=== PATIENT | male | born 1940 | race Caucasian/White ===

== ENCOUNTER 2018-10-26 09:20 | Inpatient (IN) ==
[2018-10-26] MEDS ORDERED: ASPIRIN 325 MG TABLET PO STA (09:44)
[2018-10-26] MEDS ORDERED: NITROGLYCERIN 2% OINT 1 INCH/GM PACK TOP STA (09:44)
[2018-10-26] MEDS ORDERED: ALBUTEROL/IPRATROPIUM 3 ML NEB RESP TX STA ×2 (09:44→11:53)
[2018-10-26] MEDS ORDERED: ONDANSETRON 4 MG/2 ML VIAL IV STA (09:44)
[2018-10-26] MEDS ORDERED: KETOROLAC 30 MG/1 ML VIAL IV STA (09:44)
[2018-10-26 10:06] LABS: Basophils # 0.1 10*3/uL (0.0-0.2); Basophils % 1.1 % (0.0-0.8); Eosinophils # 0.2 10*3/uL (0.0-0.87); Eosinophils % 2.5 % (0.00-10.9); Hematocrit 49.9 VOL% (42.0-52.0); Immature Granulocytes % 0.4 %; Immature Granulocytes Absolute 0.03 #; Lymphocytes # 1.2 10*3/uL (1.4-4.0); Lymphocytes % 13.5 % (21.2-54.2); Mean Corpuscular HGB Conc 32.1 GM/DL (32-36); Mean Corpuscular Volume 94.7 FL (87-102); Mean Platelet Volume 9.8 FL (9.6-12.0); Monocytes % 8.2 % (1.7-12.7); Neutrophils % 74.3 % (38.7-73.9); Platelet Count 189 T/CUMM (130-400); Red Blood Count 5.27 MC/CUMM (3.8-5.5); Red Cell Distribution Width 12.9 % (9.3-17.3); White Blood Count 8.5 T/CUMM (4-12)
[2018-10-26 10:17] LABS: PT Patient Result 10.6 SECS; Partial Thromboplastin Time 24.3 SECS (0-40)
[2018-10-26 10:29] LABS: Alanine Aminotransferase 16 U/L (16-61); Albumin 3.6 G/DL (3.4-5.0); Alkaline Phosphatase 107 U/L (45-117); Aspartate Amino Transferase 18 U/L (0-37); Blood Urea Nitrogen 19 MG/DL (7-18); Calcium 9.4 MG/DL (8.5-10.1); Glucose 77 MG/DL (74-106); Osmolality,Calculated 279.4 MOS/KG (273-304); Total Protein 7.6 G/DL (6.4-8.3)
[2018-10-26 10:30] LABS: Troponin I 0.138 NG/ML (0.00-0.045)
[2018-10-26 11:17] LABS: Apearance,Urine CLEAR (Clear); Bilirubin,Urine Negative (Negative); Blood, Urine Negative (Negative); Glucose,Urine (UA) Negative (Negative); Ketones,Urine Negative (Negative); Mucus,Urine Occasional /LPF (Occasional); Nitrite,Urine Negative (Negative); Protein,Urine Negative; RBC,Urine 4 /HPF (0-4); Squamous Epithelial Cell,Urine Occasional /HPF (0-10); Urine Color Yellow (Yellow); Urine Specific Gravity 1.018 (1.001-1.035); WBC,Urine <1 /HPF (0-6)
[2018-10-26 14:34] LABS: Troponin I 0.159 NG/ML (0.00-0.045)
[2018-10-26] MEDS ORDERED: ONDANSETRON 4 MG/2 ML VIAL IV PRN (16:37)
[2018-10-26] MEDS ORDERED: diphenhydrAMINE CAP 25 MG CAPSULE PO PRN (16:37)
[2018-10-26] MEDS ORDERED: NICOTINE 21 MG/24 HR PATCH TRANSDERM PRN (16:37)
[2018-10-26] MEDS ORDERED: DOCUSATE SODIUM 100 MG CAPSULE PO PRN (16:37)
[2018-10-26] MEDS ORDERED: MAGNESIUM SULF RIDER 4 GM in PREMIX 1 EACH IV PRN (16:37)
[2018-10-26] MEDS ORDERED: ZALEPLON 5 MG CAPSULE PO PRN (16:37)
[2018-10-26] MEDS ORDERED: MAGNESIUM SULF RIDER 2 GM in PREMIX 1 EACH IV PRN (16:37)
[2018-10-26] MEDS ORDERED: PROMETHAZINE 25 MG TABLET PO PRN (16:37)
[2018-10-26] MEDS ORDERED: MORPHINE 4 MG/1 ML VIAL IV PRN (16:37)
[2018-10-26] MEDS ORDERED: ACETAMINOPHEN 325 MG TABLET PO PRN (16:37)
[2018-10-26] MEDS ORDERED: guaiFENesin/DM ER 600-30 MG TABLET PO PRN (16:37)
[2018-10-26] MEDS ORDERED: FAMOTIDINE 20 MG TABLET PO PRN (16:42)
[2018-10-26] MEDS ORDERED: SODIUM CHLORIDE 0.9% 1,000 ML IV SCH (17:00)
[2018-10-26] MEDS ORDERED: NITROGLYCERIN SL 0.4 MG TABLET SL PRN (17:26)
[2018-10-26 18:10] LABS: Risk Ratio 4.61; VLDL CHOLESTEROL 19.6 MG/DL
[2018-10-26] MEDS ORDERED: ASPIRIN EC 81 MG TABLET PO SCH (21:00)
[2018-10-26] MEDS ORDERED: LISINOPRIL 20 MG TABLET PO SCH (21:00)
[2018-10-26] MEDS: ROSUVASTATIN 10 MG TABLET PO SCH (21:39)
[2018-10-26] MEDS: METOPROLOL TARTRATE 25 MG TABLET PO SCH (21:39)
[2018-10-26] MEDS: ENOXAPARIN 80 MG/0.8 ML SYRINGE SUBCUT SCH (21:40)
[2018-10-26] MEDS: buPROPion 75 MG TABLET PO SCH (21:42)
[2018-10-26 23:40] LABS: Troponin I 0.215 NG/ML (0.00-0.045)
[2018-10-27 05:59] LABS: Basophils # 0.1 10*3/uL (0.0-0.2); Basophils % 1.3 % (0.0-0.8); Eosinophils # 0.3 10*3/uL (0.0-0.87); Eosinophils % 3.9 % (0.00-10.9); Hematocrit 41.5 VOL% (42.0-52.0); Hemoglobin 13.5 GM/DL (14.0-18.0); Immature Granulocytes % 0.4 %; Immature Granulocytes Absolute 0.03 #; Lymphocytes # 1.2 10*3/uL (1.4-4.0); Lymphocytes % 17.9 % (21.2-54.2); Mean Corpuscular HGB Conc 32.5 GM/DL (32-36); Mean Corpuscular Volume 94.7 FL (87-102); Mean Platelet Volume 10.3 FL (9.6-12.0); Monocytes % 8.6 % (1.7-12.7); Neutrophils % 67.9 % (38.7-73.9); Platelet Count 167 T/CUMM (130-400); Red Blood Count 4.38 MC/CUMM (3.8-5.5); Red Cell Distribution Width 12.9 % (9.3-17.3); White Blood Count 6.9 T/CUMM (4-12)
[2018-10-27 06:25] LABS: Albumin 3.2 G/DL (3.4-5.0); Bilirubin,Total 0.9 MG/DL (0.2-1.0); Calcium 8.6 MG/DL (8.5-10.1); Osmolality,Calculated 289.8 MOS/KG (273-304); Total Protein 6.3 G/DL (6.4-8.3)
[2018-10-27] MEDS: ENOXAPARIN 80 MG/0.8 ML SYRINGE SUBCUT SCH ×2 (06:47→17:53)
[2018-10-27] MEDS: buPROPion 75 MG TABLET PO SCH (08:50)
[2018-10-27] MEDS: METOPROLOL TARTRATE 25 MG TABLET PO SCH ×2 (08:50→22:36)
[2018-10-27] MEDS: PANTOPRAZOLE 40 MG TABLET PO SCH (08:50)
[2018-10-27] MEDS ORDERED: ASPIRIN CHEW 81 MG TABLET PO ONE (15:31)
[2018-10-27] MEDS: LACTULOSE 20 GM/30 ML UDCUP PO PRN (15:58)
[2018-10-27] MEDS: ALBUTEROL/IPRATROPIUM 3 ML NEB RESP TX SCH ×2 (21:08→23:55)
[2018-10-27] MEDS: ROSUVASTATIN 10 MG TABLET PO SCH (22:36)
[2018-10-28] MEDS: ENOXAPARIN 80 MG/0.8 ML SYRINGE SUBCUT SCH ×2 (06:17→17:47)
[2018-10-28] MEDS: ALBUTEROL/IPRATROPIUM 3 ML NEB RESP TX SCH ×5 (07:41→23:07)
[2018-10-28] MEDS: buPROPion 75 MG TABLET PO SCH (09:02)
[2018-10-28] MEDS: PANTOPRAZOLE 40 MG TABLET PO SCH (09:02)
[2018-10-28] MEDS: ASPIRIN CHEW 81 MG TABLET PO SCH (09:02)
[2018-10-28] MEDS: METOPROLOL TARTRATE 25 MG TABLET PO SCH ×2 (09:03→21:22)
[2018-10-28] MEDS ORDERED: POTASSIUM CHLORIDE RIDER 10 MEQ in PREMIX 1 EACH IV PRN (15:07)
[2018-10-28] MEDS ORDERED: MAGNESIUM SULF RIDER 2 GM in PREMIX 1 EACH IV PRN (15:07)
[2018-10-28] MEDS ORDERED: DIAZEPAM 5 MG TABLET PO ONE (15:07)
[2018-10-28] MEDS ORDERED: diphenhydrAMINE CAP 25 MG CAPSULE PO ONE (15:07)
[2018-10-28] MEDS: ROSUVASTATIN 10 MG TABLET PO SCH (21:21)
[2018-10-28] MEDS: NITROGLYCERIN 2% OINT 1 INCH/GM PACK TOP SCH (21:43)
[2018-10-28] MEDS: SODIUM CHLORIDE 0.9% 1,000 ML IV SCH (22:14)
[2018-10-29 04:18] LABS: Basophils # 0.1 10*3/uL (0.0-0.2); Basophils % 1.5 % (0.0-0.8); Eosinophils # 0.3 10*3/uL (0.0-0.87); Eosinophils % 5.5 % (0.00-10.9); Hematocrit 39.2 VOL% (42.0-52.0); Immature Granulocytes % 0.2 %; Immature Granulocytes Absolute 0.01 #; Lymphocytes # 1.3 10*3/uL (1.4-4.0); Lymphocytes % 22.7 % (21.2-54.2); Mean Corpuscular HGB Conc 33.2 GM/DL (32-36); Mean Corpuscular Volume 92.5 FL (87-102); Mean Platelet Volume 10.1 FL (9.6-12.0); Monocytes % 10.4 % (1.7-12.7); Neutrophils % 59.7 % (38.7-73.9); Platelet Count 180 T/CUMM (130-400); Red Blood Count 4.24 MC/CUMM (3.8-5.5); Red Cell Distribution Width 12.9 % (9.3-17.3); White Blood Count 5.5 T/CUMM (4-12)
[2018-10-29] MEDS: NITROGLYCERIN 2% OINT 1 INCH/GM PACK TOP SCH ×4 (05:56→20:57)
[2018-10-29] MEDS: ENOXAPARIN 80 MG/0.8 ML SYRINGE SUBCUT SCH (06:01)
[2018-10-29] MEDS: ALBUTEROL/IPRATROPIUM 3 ML NEB RESP TX SCH ×5 (07:00→23:01)
[2018-10-29] MEDS: SODIUM CHLORIDE 0.9% 1,000 ML IV SCH ×2 (07:20→08:42)
[2018-10-29 07:25] LABS: Calcium 8.2 MG/DL (8.5-10.1); Osmolality,Calculated 286.8 MOS/KG (273-304)
[2018-10-29] MEDS ORDERED: diphenhydrAMINE CAP 50 MG CAPSULE ONE (10:06)
[2018-10-29] MEDS ORDERED: DIAZEPAM 5 MG TABLET ONE (10:06)
[2018-10-29] MEDS: METOPROLOL TARTRATE 25 MG TABLET PO SCH ×3 (11:15→20:54)
[2018-10-29] MEDS: ASPIRIN CHEW 81 MG TABLET PO SCH ×2 (11:15→11:16)
[2018-10-29] MEDS: buPROPion 75 MG TABLET PO SCH (11:16)
[2018-10-29] MEDS: PANTOPRAZOLE 40 MG TABLET PO SCH (11:16)
[2018-10-29] MEDS ORDERED: LIDOCAINE 1% 20 ML VIAL ONE (13:27)
[2018-10-29] MEDS ORDERED: MIDAZOLAM 2 MG/2 ML VIAL ONE (13:40)
[2018-10-29] MEDS ORDERED: fentaNYL 100 MCG/2 ML VIAL ONE (14:12)
[2018-10-29] MEDS: ROSUVASTATIN 10 MG TABLET PO SCH (20:54)
[2018-10-29] MEDS: ENOXAPARIN 30 MG/0.3 ML SYRINGE SUBCUT SCH (20:56)
[2018-10-30] MEDS: NITROGLYCERIN 2% OINT 1 INCH/GM PACK TOP SCH ×4 (03:16→22:17)
[2018-10-30 04:24] LABS: Basophils # 0.1 10*3/uL (0.0-0.2); Basophils % 1.2 % (0.0-0.8); Eosinophils # 0.3 10*3/uL (0.0-0.87); Eosinophils % 4.6 % (0.00-10.9); Hematocrit 39.7 VOL% (42.0-52.0); Hemoglobin 13.2 GM/DL (14.0-18.0); Immature Granulocytes % 0.4 %; Immature Granulocytes Absolute 0.02 #; Lymphocytes # 0.8 10*3/uL (1.4-4.0); Lymphocytes % 13.8 % (21.2-54.2); Mean Corpuscular HGB Conc 33.2 GM/DL (32-36); Mean Corpuscular Volume 93.4 FL (87-102); Mean Platelet Volume 10.2 FL (9.6-12.0); Monocytes % 8.6 % (1.7-12.7); Neutrophils % 71.4 % (38.7-73.9); Platelet Count 200 T/CUMM (130-400); Red Blood Count 4.25 MC/CUMM (3.8-5.5); Red Cell Distribution Width 13.1 % (9.3-17.3); White Blood Count 5.7 T/CUMM (4-12)
[2018-10-30 04:45] LABS: Calcium 8.4 MG/DL (8.5-10.1); Osmolality,Calculated 287.8 MOS/KG (273-304)
[2018-10-30] MEDS: ALBUTEROL/IPRATROPIUM 3 ML NEB RESP TX SCH ×4 (07:20→19:31)
[2018-10-30] MEDS: PANTOPRAZOLE 40 MG TABLET PO SCH (09:10)
[2018-10-30] MEDS: METOPROLOL TARTRATE 25 MG TABLET PO SCH ×2 (09:10→22:17)
[2018-10-30] MEDS: ASPIRIN CHEW 81 MG TABLET PO SCH (09:10)
[2018-10-30] MEDS: buPROPion 75 MG TABLET PO SCH (09:10)
[2018-10-30] MEDS: POTASSIUM CHLORIDE 20 MEQ TABLET PO PRN ×2 (09:11→10:30)
[2018-10-30] MEDS: ENOXAPARIN 30 MG/0.3 ML SYRINGE SUBCUT SCH ×2 (09:11→22:17)
[2018-10-30] MEDS: LACTULOSE 20 GM/30 ML UDCUP PO PRN ×2 (13:54→18:07)
[2018-10-30] MEDS: amLODIPine 5 MG TABLET PO SCH (18:06)
[2018-10-30] MEDS: ROSUVASTATIN 10 MG TABLET PO SCH (22:17)
[2018-10-31] MEDS: ALBUTEROL/IPRATROPIUM 3 ML NEB RESP TX SCH ×6 (01:22→23:50)
[2018-10-31 05:15] LABS: Basophils # 0.1 10*3/uL (0.0-0.2); Basophils % 1.3 % (0.0-0.8); Eosinophils # 0.4 10*3/uL (0.0-0.87); Eosinophils % 6.8 % (0.00-10.9); Hematocrit 43.2 VOL% (42.0-52.0); Hemoglobin 14.2 GM/DL (14.0-18.0); Immature Granulocytes % 1.2 %; Immature Granulocytes Absolute 0.07 #; Lymphocytes # 1.2 10*3/uL (1.4-4.0); Lymphocytes % 19.2 % (21.2-54.2); Mean Corpuscular HGB Conc 32.9 GM/DL (32-36); Mean Corpuscular Volume 93.7 FL (87-102); Mean Platelet Volume 9.9 FL (9.6-12.0); Monocytes % 10.6 % (1.7-12.7); Neutrophils % 60.9 % (38.7-73.9); Platelet Count 220 T/CUMM (130-400); Red Blood Count 4.61 MC/CUMM (3.8-5.5); Red Cell Distribution Width 13.1 % (9.3-17.3)
[2018-10-31 05:41] LABS: Calcium 9.1 MG/DL (8.5-10.1); Osmolality,Calculated 281.3 MOS/KG (273-304)
[2018-10-31 05:42] LABS: Calcium 9.1 MG/DL (8.5-10.1); Osmolality,Calculated 279.4 MOS/KG (273-304)
[2018-10-31] MEDS ORDERED: CEFUROXIME INJ 1,500 MG in SYRINGE 1 EACH IV ONE (06:22)
[2018-10-31] MEDS ORDERED: DEXTROSE 50% 25 GM/50 ML VIAL IV PRN (06:22)
[2018-10-31] MEDS ORDERED: GLUCAGON 1 MG VIAL IM PRN (06:22)
[2018-10-31 06:37] LABS: Allen Test Positive
[2018-10-31 06:38] LABS: ABG Base Excess -1.9 MMOL/L (-2.5-2.5); ABG HCO3 22.8 MMOL/L (20-26); ABG Oxygen Saturation 96.4 % (95-100); ABG PCO2 35.7 MM HG (35-48); ABG PH 7.402 (7.35-7.45); ABG PO2 82.7 MM HG (80-95); ABG TCO2 18.8 MMOL/L (23-27)
[2018-10-31] MEDS: ASPIRIN CHEW 81 MG TABLET PO SCH (09:05)
[2018-10-31] MEDS: METOPROLOL TARTRATE 25 MG TABLET PO SCH ×2 (09:05→23:13)
[2018-10-31] MEDS: CHLORHEXIDINE 0.12% ORAL RINSE 60 ML BOTTLE SWISH/SPIT SCH ×2 (09:05→22:21)
[2018-10-31] MEDS: PANTOPRAZOLE 40 MG TABLET PO SCH (09:05)
[2018-10-31] MEDS: amLODIPine 5 MG TABLET PO SCH (09:05)
[2018-10-31] MEDS: buPROPion 75 MG TABLET PO SCH (09:05)
[2018-10-31] MEDS: CHLORHEXIDINE 4% SOLN 118 ML BOTTLE TOP SCH ×3 (09:06→23:13)
[2018-10-31] MEDS: NITROGLYCERIN 2% OINT 1 INCH/GM PACK TOP SCH ×2 (09:06→18:08)
[2018-10-31] MEDS: POTASSIUM CHLORIDE 20 MEQ TABLET PO PRN ×2 (13:46→14:21)
[2018-10-31] MEDS: ROSUVASTATIN 10 MG TABLET PO SCH (22:18)
[2018-11-01] MEDS: NITROGLYCERIN 2% OINT 1 INCH/GM PACK TOP SCH ×3 (01:57→09:56)
[2018-11-01] MEDS ORDERED: PAPAVERINE 60 MG/2 ML VIAL ONE (04:22)
[2018-11-01] MEDS ORDERED: VANCOMYCIN 1,000 MG VIAL ONE (04:23)
[2018-11-01 04:31] LABS: Calcium 9.3 MG/DL (8.5-10.1); Osmolality,Calculated 284.1 MOS/KG (273-304)
[2018-11-01] MEDS: METOPROLOL TARTRATE 25 MG TABLET PO SCH ×2 (05:49→09:56)
[2018-11-01] MEDS: SODIUM CHLORIDE 0.9% 1,000 ML IV SCH ×2 (05:49→06:49)
[2018-11-01] MEDS: amLODIPine 5 MG TABLET PO SCH ×2 (05:50→09:56)
[2018-11-01] MEDS ORDERED: LORazepam 1 MG TABLET PO ONE (06:00)
[2018-11-01] MEDS ORDERED: CEFUROXIME INJ 1,500 MG in SYRINGE 1 EACH IV ONE (06:00)
[2018-11-01] MEDS ORDERED: SUFentanil 250 MCG/5 ML AMP ONE ×2 (06:15→06:16)
[2018-11-01] MEDS ORDERED: MIDAZOLAM 10 MG/2 ML VIAL ONE (06:16)
[2018-11-01 07:48] LABS: ABG HCO3 21.2 MMOL/L (20-26); ABG Oxygen Saturation 99.8 % (95-100); ABG PCO2 45.4 MM HG (35-48); ABG PH 7.305 (7.35-7.45); ABG TCO2 19.7 MMOL/L (23-27); Glucose Heart Surgery 116 MG/DL (74-106); Hematocrit Heart Surgery 43.5 PERCENT (42-52); Hemoglobin Heart Surgery 14.2 G/DL (14.0-18.0); Ionized Calcium Arterial 1.24 MMOL/L (1.21-1.46); PCO2 Patient Temp Arterial 45.4 MMHG; PH Patient Temp Arterial 7.305; Patient Temperature 37 CELCIUS; Potassium Heart/CVR 4.1 MMOL/L (3.5-5.1); Sodium Heart/CVR 139 MMOL/L (135-145)
[2018-11-01 07:53] LABS: Apearance,Urine CLEAR (Clear); Bilirubin,Urine Negative (Negative); Blood, Urine Negative (Negative); Glucose,Urine (UA) Negative (Negative); Ketones,Urine Negative (Negative); Mucus,Urine Occasional /LPF (Occasional); Nitrite,Urine Negative (Negative); Protein,Urine Negative; RBC,Urine <1 /HPF (0-4); Squamous Epithelial Cell,Urine Occasional /HPF (0-10); Urine Color Yellow (Yellow); Urine Specific Gravity 1.014 (1.001-1.035); WBC,Urine <1 /HPF (0-6)
[2018-11-01 08:47] LABS: Hematocrit Heart Surgery 30.6 PERCENT (42-52); Hemoglobin Heart Surgery 9.9 G/DL (14.0-18.0); PCO2 Patient Temp Venous 37.4 MM HG; PH Patient Temp Venous 7.395; PO2 Patient Temp Venous 47.3 MM HG; VBG Base Excess -1.6 MEQ/L (0-4); VBG HCO3 22.9 MEQ/L (24-28); VBG Oxygen Saturation 87.7 %; VBG PCO2 41.2 MMHG (41-51); VBG PH 7.366; VBG PO2 54.2 MMHG (17-40)
[2018-11-01] MEDS: ALBUTEROL/IPRATROPIUM 3 ML NEB RESP TX SCH ×5 (08:55→23:45)
[2018-11-01] MEDS ORDERED: HEPARIN/NACL 0.9% 2 UNITS/ML 500 ML IV ONE (09:07)
[2018-11-01] MEDS ORDERED: PHENYLEPHRINE DRIP 20 MG/250 ML PREMIX IV ONE (09:07)
[2018-11-01] MEDS ORDERED: ePHEDrine 50 MG/ML AMP ONE (09:07)
[2018-11-01] MEDS ORDERED: MINERAL OIL/PETROLATUM OPH OINT 3.5 GM TUBE ONE (09:07)
[2018-11-01] MEDS ORDERED: CALCIUM CHLORIDE 1,000 MG/10 ML VIAL IV ONE (09:07)
[2018-11-01] MEDS ORDERED: SODIUM CHLORIDE 0.9% 100 ML IV ONE (09:08)
[2018-11-01] MEDS ORDERED: NITROGLYCERIN DRIP 50 MG/250 ML BOTTLE IV ONE (09:08)
[2018-11-01] MEDS ORDERED: ROCURONIUM 100 MG/10 ML VIAL IV ONE (09:08)
[2018-11-01] MEDS ORDERED: AMINOCAPROIC ACID 5,000 MG/20 ML VIAL ONE (09:08)
[2018-11-01] MEDS ORDERED: LACTATED RINGERS 1,000 ML IV ONE (09:08)
[2018-11-01] MEDS ORDERED: SODIUM CHLORIDE 0.9% 250 ML IV ONE (09:08)
[2018-11-01] MEDS ORDERED: PHENYLEPHRINE 1 MG/10 ML SYRINGE IV ONE (09:08)
[2018-11-01] MEDS ORDERED: ETOMIDATE 40 MG/20 ML VIAL IV ONE (09:09)
[2018-11-01 09:17] LABS: Hematocrit Heart Surgery 32.4 PERCENT (42-52); Hemoglobin Heart Surgery 10.5 G/DL (14.0-18.0); PCO2 Patient Temp Venous 31.5 MM HG; PH Patient Temp Venous 7.505; Potassium Heart/CVR 5.2 MMOL/L (3.5-5.1); VBG Base Excess 2.2 MEQ/L (0-4); VBG HCO3 26.1 MEQ/L (24-28); VBG Oxygen Saturation 84.5 %; VBG PCO2 34.7 MMHG (41-51); VBG PH 7.474; VBG PO2 44.8 MMHG (17-40)
[2018-11-01] MEDS ORDERED: NITROPRUSSIDE 50 MG/2 ML VIAL ONE (09:19)
[2018-11-01] MEDS ORDERED: PHENYLEPHRINE DRIP 40 MG/250 ML PREMIX IV ONE (09:19)
[2018-11-01] MEDS ORDERED: POTASSIUM CHLORIDE RIDER 100 ML IV ONE (09:20)
[2018-11-01] MEDS ORDERED: ALBUMIN 5% 12.5 GM/250 ML VIAL IV ONE (09:20)
[2018-11-01] MEDS ORDERED: SODIUM BICARBONATE 50 MEQ/50 ML VIAL IV ONE (09:48)
[2018-11-01] MEDS ORDERED: MANNITOL 100 GM/500 ML BAG IV ONE (09:48)
[2018-11-01] MEDS ORDERED: DEXTROSE 5% KCL 20 MEQ 20 MEQ/1,000 ML BAG IV ONE (09:48)
[2018-11-01] MEDS ORDERED: ALBUMIN 25% 25 GM/100 ML VIAL IV ONE (09:48)
[2018-11-01] MEDS ORDERED: PROTAMINE SULFATE 250 MG/25 ML VIAL IV ONE (09:48)
[2018-11-01] MEDS ORDERED: MAGNESIUM SULFATE 5 GM/10 ML VIAL IV ONE (09:48)
[2018-11-01] MEDS ORDERED: FUROSEMIDE 20 MG/2 ML VIAL ONE (09:49)
[2018-11-01] MEDS ORDERED: methylPREDNISolone SOD SUC 1,000 MG/8 ML VIAL ONE (09:49)
[2018-11-01] MEDS ORDERED: PROTAMINE SULFATE 50 MG/5 ML VIAL IV ONE ×3 (09:49→11:15)
[2018-11-01] MEDS ORDERED: HEPARIN 10,000 UNIT/10 ML VIAL ONE (09:49)
[2018-11-01] MEDS: ASPIRIN CHEW 81 MG TABLET PO SCH (09:56)
[2018-11-01] MEDS: PANTOPRAZOLE 40 MG TABLET PO SCH (09:57)
[2018-11-01] MEDS: CHLORHEXIDINE 0.12% ORAL RINSE 60 ML BOTTLE SWISH/SPIT SCH ×2 (09:57→22:16)
[2018-11-01] MEDS: buPROPion 75 MG TABLET PO SCH (09:57)
[2018-11-01] MEDS ORDERED: THROMBIN TOPICAL (RECOMBINANT) 5,000 UNIT VIAL TOP ONE (09:59)
[2018-11-01 10:01] LABS: ABG Base Excess -0.6 MMOL/L (-2.5-2.5); ABG PCO2 37.6 MM HG (35-48); ABG PH 7.409 (7.35-7.45); ABG TCO2 21.2 MMOL/L (23-27); Glucose Heart Surgery 227 MG/DL (74-106); Hematocrit Heart Surgery 35.5 PERCENT (42-52); Hemoglobin Heart Surgery 11.5 G/DL (14.0-18.0); Ionized Calcium Arterial 1.47 MMOL/L (1.21-1.46); PCO2 Patient Temp Arterial 37.6 MMHG; PH Patient Temp Arterial 7.409; Patient Temperature 37 CELCIUS; Sodium Heart/CVR 135 MMOL/L (135-145)
[2018-11-01] MEDS ORDERED: DEXTROSE 50% 25 GM/50 ML VIAL IV PRN ×2 (11:00)
[2018-11-01] MEDS ORDERED: LACTATED RINGERS 250 ML IV PRN (11:00)
[2018-11-01] MEDS ORDERED: NITROPRUSSIDE 100 MG in DEXTROSE 5% 250 ML IV PRN (11:00)
[2018-11-01] MEDS ORDERED: MAGNESIUM SULF RIDER 2 GM in PREMIX 1 EACH IV PRN (11:00)
[2018-11-01] MEDS ORDERED: ACETAMINOPHEN 650 MG SUPP RECTAL PRN (11:00)
[2018-11-01] MEDS ORDERED: MIDAZOLAM 2 MG/2 ML VIAL IV PRN (11:00)
[2018-11-01] MEDS ORDERED: PHENYLEPHRINE DRIP 40 MG/250 ML PREMIX IV PRN (11:00)
[2018-11-01] MEDS ORDERED: MORPHINE 10 MG/1 ML VIAL IV PRN (11:00)
[2018-11-01] MEDS ORDERED: MIDAZOLAM 10 MG/2 ML VIAL IV PRN (11:00)
[2018-11-01] MEDS ORDERED: CALCIUM CHLORIDE 1,000 MG/10 ML SYRINGE IV PRN (11:00)
[2018-11-01] MEDS ORDERED: VECURONIUM 10 MG VIAL IV PRN ×2 (11:00)
[2018-11-01] MEDS ORDERED: ONDANSETRON 4 MG/2 ML VIAL IV PRN (11:00)
[2018-11-01] MEDS ORDERED: INSULIN REGULAR 100 UNIT/ML IV ONE (11:00)
[2018-11-01] MEDS ORDERED: MAGNESIUM SULF RIDER 4 GM in PREMIX 1 EACH IV PRN (11:00)
[2018-11-01] MEDS ORDERED: SEVOFLURANE 1 UNIT/15 MINUTE INH ONE (11:06)
[2018-11-01] MEDS: SODIUM CHLORIDE 0.45% 1,000 ML IV SCH ×2 (11:15)
[2018-11-01 11:45] LABS: ABG Base Excess -1.3 MMOL/L (-2.5-2.5); ABG HCO3 23.3 MMOL/L (20-26); ABG Oxygen Saturation 96.9 % (95-100); ABG PH 7.341 (7.35-7.45); ABG PO2 94.6 MM HG (80-95); ABG TCO2 21.8 MMOL/L (23-27); Glucose Heart Surgery 181 MG/DL (74-106); Hematocrit Heart Surgery 41.2 PERCENT (42-52); Hemoglobin Heart Surgery 13.4 G/DL (14.0-18.0); Potassium Heart/CVR 3.8 MMOL/L (3.5-5.1)
[2018-11-01] MEDS: LACTATED RINGERS 1,000 ML IV PRN ×3 (11:47→15:53)
[2018-11-01 11:48] LABS: Basophils # 0.1 10*3/uL (0.0-0.2); Basophils % 0.7 % (0.0-0.8); Eosinophils # 0.2 10*3/uL (0.0-0.87); Eosinophils % 1.3 % (0.00-10.9); Hemoglobin 12.8 GM/DL (14.0-18.0); Immature Granulocytes % 0.6 %; Immature Granulocytes Absolute 0.07 #; Lymphocytes % 8.3 % (21.2-54.2); Mean Corpuscular Volume 95.5 FL (87-102); Mean Platelet Volume 9.8 FL (9.6-12.0); Monocytes % 5.8 % (1.7-12.7); Neutrophils % 83.3 % (38.7-73.9); Platelet Count 206 T/CUMM (130-400); Red Blood Count 4.19 MC/CUMM (3.8-5.5); Red Cell Distribution Width 13.2 % (9.3-17.3)
[2018-11-01] MEDS: POTASSIUM CHLORIDE RIDER 20 MEQ in PREMIX 1 EACH IV PRN ×3 (11:48→19:22)
[2018-11-01 11:56] LABS: INR 1.2; PT Patient Result 13.2 SECS; Partial Thromboplastin Time 25.2 SECS (0-40)
[2018-11-01] MEDS: KETOROLAC 15 MG/1 ML VIAL IV SCH ×3 (12:02→22:16)
[2018-11-01] MEDS: INSULIN REGULAR DRIP 100 ML IV SCH (12:10)
[2018-11-01] MEDS: ALBUMIN 5% 12.5 GM in PREMIX 1 EACH IV PRN ×3 (12:11→14:44)
[2018-11-01] MEDS: POTASSIUM CHLORIDE RIDER 10 MEQ in PREMIX 1 EACH IV PRN ×2 (12:22→16:53)
[2018-11-01 12:41] LABS: CKMB % 6.8 %
[2018-11-01 12:43] LABS: Troponin I 2.17 NG/ML (0.00-0.045)
[2018-11-01 13:52] LABS: ABG Base Excess -0.9 MMOL/L (-2.5-2.5); ABG HCO3 23.6 MMOL/L (20-26); ABG Oxygen Saturation 95.1 % (95-100); ABG PCO2 49.5 MM HG (35-48); ABG PH 7.323 (7.35-7.45); ABG PO2 81.6 MM HG (80-95); Glucose Heart Surgery 110 MG/DL (74-106); Hematocrit Heart Surgery 37.2 PERCENT (42-52); Hemoglobin Heart Surgery 12.1 G/DL (14.0-18.0)
[2018-11-01 14:04] LABS: Albumin 3.3 G/DL (3.4-5.0); Bilirubin,Total 1.4 MG/DL (0.2-1.0); Calcium 10.2 MG/DL (8.5-10.1); Osmolality,Calculated 284.4 MOS/KG (273-304); Total Protein 5.8 G/DL (6.4-8.3)
[2018-11-01 16:12] LABS: ABG Base Excess -0.6 MMOL/L (-2.5-2.5); ABG Oxygen Saturation 95.8 % (95-100); ABG PCO2 39.8 MM HG (35-48); ABG PH 7.399 (7.35-7.45); ABG PO2 84.3 MM HG (80-95); ABG TCO2 25.3 MMOL/L (23-27); Glucose Heart Surgery 136 MG/DL (74-106); Hemoglobin Heart Surgery 11.9 G/DL (14.0-18.0); Potassium Heart/CVR 4.5 MMOL/L (3.5-5.1)
[2018-11-01] MEDS: CEFUROXIME INJ 1,500 MG in SYRINGE 1 EACH IV SCH (18:17)
[2018-11-01 19:08] LABS: ABG Base Excess -0.6 MMOL/L (-2.5-2.5); ABG HCO3 23.9 MMOL/L (20-26); ABG Oxygen Saturation 96.4 % (95-100); ABG PCO2 44.3 MM HG (35-48); ABG PO2 84.2 MM HG (80-95); ABG TCO2 22.5 MMOL/L (23-27); Glucose Heart Surgery 155 MG/DL (74-106); Hematocrit Heart Surgery 34.8 PERCENT (42-52); Hemoglobin Heart Surgery 11.3 G/DL (14.0-18.0); Potassium Heart/CVR 4.4 MMOL/L (3.5-5.1)
[2018-11-02] MEDS: INSULIN REGULAR 100 UNIT/ML IV PRN ×2 (00:10→06:45)
[2018-11-02 02:40] LABS: ABG Base Excess -0.2 MMOL/L (-2.5-2.5); ABG HCO3 24.2 MMOL/L (20-26); ABG Oxygen Saturation 95.6 % (95-100); ABG PCO2 40.1 MM HG (35-48); ABG PH 7.395 (7.35-7.45); ABG PO2 75.6 MM HG (80-95); ABG TCO2 21.9 MMOL/L (23-27); Glucose Heart Surgery 136 MG/DL (74-106); Hemoglobin Heart Surgery 11.7 G/DL (14.0-18.0); Potassium Heart/CVR 4.3 MMOL/L (3.5-5.1)
[2018-11-02 03:21] LABS: ABG Base Excess -0.4 MMOL/L (-2.5-2.5); ABG HCO3 24.1 MMOL/L (20-26); ABG Oxygen Saturation 96.6 % (95-100); ABG PCO2 40.7 MM HG (35-48); ABG PH 7.388 (7.35-7.45); ABG PO2 82.3 MM HG (80-95); ABG TCO2 22.1 MMOL/L (23-27); Glucose Heart Surgery 138 MG/DL (74-106); Hematocrit Heart Surgery 34.1 PERCENT (42-52); Hemoglobin Heart Surgery 11.1 G/DL (14.0-18.0); Potassium Heart/CVR 4.4 MMOL/L (3.5-5.1)
[2018-11-02 03:24] LABS: Basophils % 0.1 % (0.0-0.8); Immature Granulocytes % 0.6 %; Immature Granulocytes Absolute 0.08 #; Lymphocytes # 0.5 10*3/uL (1.4-4.0); Lymphocytes % 3.4 % (21.2-54.2); Mean Corpuscular HGB Conc 32.4 GM/DL (32-36); Mean Corpuscular Volume 95.8 FL (87-102); Mean Platelet Volume 10.3 FL (9.6-12.0); Monocytes % 2.8 % (1.7-12.7); Neutrophils % 93.1 % (38.7-73.9); Platelet Count 222 T/CUMM (130-400); Red Blood Count 3.55 MC/CUMM (3.8-5.5); Red Cell Distribution Width 13.1 % (9.3-17.3); White Blood Count 13.4 T/CUMM (4-12)
[2018-11-02] MEDS: POTASSIUM CHLORIDE RIDER 20 MEQ in PREMIX 1 EACH IV PRN (03:30)
[2018-11-02 03:52] LABS: Albumin 3.9 G/DL (3.4-5.0); Bilirubin,Direct 0.23 MG/DL (0.0-0.20); Bilirubin,Total 0.8 MG/DL (0.2-1.0); Calcium 9.2 MG/DL (8.5-10.1); Osmolality,Calculated 288.1 MOS/KG (273-304); Total Protein 6.4 G/DL (6.4-8.3)
[2018-11-02 03:55] LABS: CKMB % 5.4 %
[2018-11-02 03:56] LABS: Troponin I 2.35 NG/ML (0.00-0.045)
[2018-11-02 04:10] LABS: Eosinophils 1 % (0-10); Platelet Estimate Adequate; Polychromasia Few; Segmented Neutrophils 97 % (50-85); Total Cells Counted 100
[2018-11-02 04:21] LABS: ABG Base Excess -1.2 MMOL/L (-2.5-2.5); ABG HCO3 23.3 MMOL/L (20-26); ABG Oxygen Saturation 95.8 % (95-100); ABG PH 7.396 (7.35-7.45); ABG PO2 76.6 MM HG (80-95); ABG TCO2 20.9 MMOL/L (23-27); Glucose Heart Surgery 141 MG/DL (74-106); Hematocrit Heart Surgery 35.1 PERCENT (42-52); Hemoglobin Heart Surgery 11.4 G/DL (14.0-18.0); Potassium Heart/CVR 4.8 MMOL/L (3.5-5.1)
[2018-11-02 04:59] LABS: ABG Base Excess -1.7 MMOL/L (-2.5-2.5); ABG Oxygen Saturation 96.8 % (95-100); ABG PCO2 38.3 MM HG (35-48); ABG PH 7.387 (7.35-7.45); ABG PO2 84.8 MM HG (80-95); ABG TCO2 20.6 MMOL/L (23-27); Glucose Heart Surgery 146 MG/DL (74-106); Hematocrit Heart Surgery 35.2 PERCENT (42-52); Hemoglobin Heart Surgery 11.4 G/DL (14.0-18.0); Potassium Heart/CVR 4.7 MMOL/L (3.5-5.1)
[2018-11-02] MEDS ORDERED: ASPIRIN CHEW 81 MG TABLET PO ONE (06:11)
[2018-11-02] MEDS ORDERED: guaiFENesin/DM ER 600-30 MG TABLET PO PRN (06:11)
[2018-11-02] MEDS: KETOROLAC 15 MG/1 ML VIAL IV SCH (06:11)
[2018-11-02] MEDS: CEFUROXIME INJ 1,500 MG in SYRINGE 1 EACH IV SCH ×2 (06:11→19:01)
[2018-11-02 06:15] LABS: ABG Base Excess -1.3 MMOL/L (-2.5-2.5); ABG HCO3 23.2 MMOL/L (20-26); ABG Oxygen Saturation 94.2 % (95-100); ABG PCO2 37.2 MM HG (35-48); ABG PH 7.401 (7.35-7.45); ABG PO2 68.8 MM HG (80-95); ABG TCO2 20.7 MMOL/L (23-27); Glucose Heart Surgery 151 MG/DL (74-106); Hematocrit Heart Surgery 34.9 PERCENT (42-52); Hemoglobin Heart Surgery 11.3 G/DL (14.0-18.0); Potassium Heart/CVR 4.5 MMOL/L (3.5-5.1)
[2018-11-02] MEDS: POTASSIUM CHLORIDE RIDER 10 MEQ in PREMIX 1 EACH IV PRN (06:56)
[2018-11-02 07:11] LABS: ABG Base Excess -1.1 MMOL/L (-2.5-2.5); ABG HCO3 23.5 MMOL/L (20-26); ABG Oxygen Saturation 95.1 % (95-100); ABG PCO2 36.8 MM HG (35-48); ABG PH 7.407 (7.35-7.45); ABG PO2 71.7 MM HG (80-95); ABG TCO2 20.8 MMOL/L (23-27); Glucose Heart Surgery 140 MG/DL (74-106); Hematocrit Heart Surgery 34.5 PERCENT (42-52); Hemoglobin Heart Surgery 11.2 G/DL (14.0-18.0); Potassium Heart/CVR 4.8 MMOL/L (3.5-5.1)
[2018-11-02] MEDS: ALBUTEROL/IPRATROPIUM 3 ML NEB RESP TX SCH ×5 (07:36→23:00)
[2018-11-02] MEDS: PANTOPRAZOLE 40 MG TABLET PO SCH (09:36)
[2018-11-02] MEDS: buPROPion 75 MG TABLET PO SCH (09:37)
[2018-11-02] MEDS: METOPROLOL TARTRATE 25 MG TABLET PO SCH ×2 (09:37→20:03)
[2018-11-02] MEDS: CHLORHEXIDINE 0.12% ORAL RINSE 60 ML BOTTLE SWISH/SPIT SCH ×2 (09:51→20:06)
[2018-11-02 11:49] LABS: CKMB % 2.4 %
[2018-11-02 12:07] LABS: Troponin I 2.66 NG/ML (0.00-0.045)
[2018-11-02] MEDS: INSULIN REGULAR DRIP 100 ML IV SCH (12:25)
[2018-11-02] MEDS: SODIUM CHLORIDE 0.45% 1,000 ML IV SCH ×2 (12:25)
[2018-11-02] MEDS ORDERED: HALOPERIDOL 5 MG/ML AMP IM PRN ×2 (16:34→18:59)
[2018-11-02] MEDS: INSULIN REGULAR 100 UNIT/ML SUBCUT SCH ×3 (17:04→20:06)
[2018-11-02] MEDS: MORPHINE 4 MG/1 ML VIAL IV PRN (19:28)
[2018-11-02] MEDS ORDERED: FUROSEMIDE 40 MG/4 ML VIAL IV ONE ×2 (20:00)
[2018-11-02] MEDS: ROSUVASTATIN 10 MG TABLET PO SCH (20:03)
[2018-11-02] MEDS ORDERED: LISINOPRIL 10 MG TABLET PO SCH (21:00)
[2018-11-03] MEDS: INSULIN REGULAR 100 UNIT/ML SUBCUT SCH ×3 (00:43→08:13)
[2018-11-03 03:54] LABS: Basophils % 0.1 % (0.0-0.8); Hematocrit 31.5 VOL% (42.0-52.0); Immature Granulocytes % 0.7 %; Immature Granulocytes Absolute 0.12 #; Lymphocytes # 0.5 10*3/uL (1.4-4.0); Lymphocytes % 3.1 % (21.2-54.2); Mean Corpuscular HGB Conc 31.7 GM/DL (32-36); Mean Corpuscular Volume 96.6 FL (87-102); Mean Platelet Volume 10.6 FL (9.6-12.0); Monocytes % 4.9 % (1.7-12.7); Neutrophils % 91.2 % (38.7-73.9); Platelet Count 193 T/CUMM (130-400); Red Blood Count 3.26 MC/CUMM (3.8-5.5); Red Cell Distribution Width 13.5 % (9.3-17.3)
[2018-11-03] MEDS: MORPHINE 4 MG/1 ML VIAL IV PRN (03:58)
[2018-11-03 04:13] LABS: Albumin 3.6 G/DL (3.4-5.0); Bilirubin,Direct 0.24 MG/DL (0.0-0.20); Bilirubin,Total 0.9 MG/DL (0.2-1.0); Calcium 9.4 MG/DL (8.5-10.1); Osmolality,Calculated 289.5 MOS/KG (273-304); Total Protein 6.6 G/DL (6.4-8.3)
[2018-11-03 04:32] LABS: Band Neutrophils 3 % (0-10); Lymphocytes 3 % (20-55); Platelet Estimate Normal; Segmented Neutrophils 90 % (50-85); Total Cells Counted 100
[2018-11-03] MEDS: POTASSIUM CHLORIDE RIDER 20 MEQ in PREMIX 1 EACH IV PRN (05:40)
[2018-11-03] MEDS: ALBUTEROL/IPRATROPIUM 3 ML NEB RESP TX SCH ×5 (07:20→23:00)
[2018-11-03] MEDS: PANTOPRAZOLE 40 MG TABLET PO SCH (08:13)
[2018-11-03] MEDS: CHLORHEXIDINE 0.12% ORAL RINSE 60 ML BOTTLE SWISH/SPIT SCH ×2 (08:13→21:08)
[2018-11-03] MEDS: METOPROLOL TARTRATE 25 MG TABLET PO SCH ×2 (08:13→21:08)
[2018-11-03] MEDS: buPROPion 75 MG TABLET PO SCH (08:13)
[2018-11-03] MEDS ORDERED: guaiFENesin/DM ER 600-30 MG TABLET PO PRN (08:30)
[2018-11-03] MEDS ORDERED: ASPIRIN CHEW 81 MG TABLET PO ONE (08:30)
[2018-11-03] MEDS ORDERED: buPROPion 75 MG TABLET PO SCH (09:00)
[2018-11-03] MEDS ORDERED: PANTOPRAZOLE 40 MG TABLET PO SCH ×2 (09:00→09:43)
[2018-11-03] MEDS ORDERED: METOPROLOL TARTRATE 25 MG TABLET PO SCH (09:00)
[2018-11-03] MEDS ORDERED: MAGNESIUM SULF RIDER 2 GM in PREMIX 1 EACH IV PRN (09:43)
[2018-11-03] MEDS ORDERED: GLUCAGON 1 MG VIAL IM PRN ×2 (09:43)
[2018-11-03] MEDS ORDERED: ALUMINUM/MAGNES/SIMETH MAX STR 30 ML UDCUP PO PRN (09:43)
[2018-11-03] MEDS ORDERED: ACETAMINOPHEN 325 MG TABLET PO PRN (09:43)
[2018-11-03] MEDS ORDERED: MAGNESIUM SULF RIDER 4 GM in PREMIX 1 EACH IV PRN (09:43)
[2018-11-03] MEDS ORDERED: CHLORHEXIDINE 0.12% ORAL RINSE 60 ML BOTTLE SWISH/SPIT SCH (09:43)
[2018-11-03] MEDS ORDERED: DEXTROSE 50% 25 GM/50 ML VIAL IV PRN ×2 (09:43)
[2018-11-03] MEDS ORDERED: SODIUM CHLOR 0.45% KCL 20 MEQ 20 MEQ/1,000 ML BAG IV SCH (09:43)
[2018-11-03] MEDS ORDERED: ONDANSETRON 4 MG/2 ML VIAL IV PRN (09:43)
[2018-11-03] MEDS ORDERED: POTASSIUM CHLORIDE 20 MEQ TABLET PO PRN (09:43)
[2018-11-03] MEDS ORDERED: ZALEPLON 5 MG CAPSULE PO PRN (09:43)
[2018-11-03] MEDS: FERROUS SULFATE 325 MG TABLET PO SCH (10:29)
[2018-11-03] MEDS: DOCUSATE SODIUM 100 MG CAPSULE PO SCH (10:29)
[2018-11-03] MEDS: ASPIRIN EC 325 MG TABLET PO SCH (10:29)
[2018-11-03] MEDS: oxyCODONE/ACETAMINOPHEN 5-325 MG TABLET PO PRN ×2 (12:44→21:14)
[2018-11-03] MEDS ORDERED: NON-FORMULARY MEDICATION (Lovastatin 10 MG) PO SCH (21:00)
[2018-11-03] MEDS ORDERED: ROSUVASTATIN 10 MG TABLET PO SCH (21:00)
[2018-11-03] MEDS: LISINOPRIL 20 MG TABLET PO SCH (21:08)
[2018-11-03] MEDS: ROSUVASTATIN 10 MG TABLET PO SCH (21:08)
[2018-11-04] MEDS: oxyCODONE/ACETAMINOPHEN 5-325 MG TABLET PO PRN (04:30)
[2018-11-04 05:00] LABS: Basophils % 0.1 % (0.0-0.8); Hemoglobin 9.7 GM/DL (14.0-18.0); Immature Granulocytes % 0.7 %; Lymphocytes # 0.6 10*3/uL (1.4-4.0); Lymphocytes % 4.4 % (21.2-54.2); Mean Corpuscular HGB Conc 32.3 GM/DL (32-36); Mean Corpuscular Volume 95.8 FL (87-102); Mean Platelet Volume 10.8 FL (9.6-12.0); Monocytes % 6.8 % (1.7-12.7); Platelet Count 194 T/CUMM (130-400); Red Blood Count 3.13 MC/CUMM (3.8-5.5); Red Cell Distribution Width 13.3 % (9.3-17.3); White Blood Count 14.6 T/CUMM (4-12)
[2018-11-04 05:21] LABS: Alanine Aminotransferase 30 U/L (16-61); Albumin 3.2 G/DL (3.4-5.0); Alkaline Phosphatase 65 U/L (45-117); Aspartate Amino Transferase 32 U/L (0-37); Bilirubin,Indirect 0.8 MG/DL (0.0-1.0); Blood Urea Nitrogen 42 MG/DL (7-18); Calcium 9.3 MG/DL (8.5-10.1); Glucose 143 MG/DL (74-106); Osmolality,Calculated 289.5 MOS/KG (273-304); Total Protein 6.2 G/DL (6.4-8.3)
[2018-11-04 05:51] LABS: Band Neutrophils 3 % (0-10); Lymphocytes 3 % (20-55); Platelet Estimate Normal; Segmented Neutrophils 87 % (50-85); Total Cells Counted 100
[2018-11-04] MEDS ORDERED: FUROSEMIDE 40 MG/4 ML VIAL IV ONE (06:00)
[2018-11-04] MEDS: ALBUTEROL/IPRATROPIUM 3 ML NEB RESP TX SCH ×4 (07:19→19:28)
[2018-11-04] MEDS: ASPIRIN EC 325 MG TABLET PO SCH (10:11)
[2018-11-04] MEDS: DOCUSATE SODIUM 100 MG CAPSULE PO SCH (10:11)
[2018-11-04] MEDS: MAGNESIUM HYDROXIDE SUSP 30 ML UDCUP PO PRN (10:12)
[2018-11-04] MEDS: PANTOPRAZOLE 40 MG TABLET PO SCH (10:12)
[2018-11-04] MEDS: FERROUS SULFATE 325 MG TABLET PO SCH (10:12)
[2018-11-04] MEDS: buPROPion 75 MG TABLET PO SCH (10:12)
[2018-11-04] MEDS: CHLORHEXIDINE 0.12% ORAL RINSE 60 ML BOTTLE SWISH/SPIT SCH ×2 (10:13→20:37)
[2018-11-04] MEDS: METOPROLOL TARTRATE 25 MG TABLET PO SCH ×2 (10:16→20:36)
[2018-11-04] MEDS: ROSUVASTATIN 10 MG TABLET PO SCH (20:36)
[2018-11-04] MEDS: LISINOPRIL 20 MG TABLET PO SCH (20:37)
[2018-11-05] MEDS: oxyCODONE/ACETAMINOPHEN 5-325 MG TABLET PO PRN ×2 (01:15→21:11)
[2018-11-05 05:18] LABS: Basophils % 0.1 % (0.0-0.8); Eosinophils % 0.3 % (0.00-10.9); Hematocrit 32.5 VOL% (42.0-52.0); Hemoglobin 10.7 GM/DL (14.0-18.0); Immature Granulocytes % 0.7 %; Immature Granulocytes Absolute 0.08 #; Lymphocytes # 1.6 10*3/uL (1.4-4.0); Lymphocytes % 15.1 % (21.2-54.2); Mean Corpuscular HGB Conc 32.9 GM/DL (32-36); Mean Corpuscular Volume 95.6 FL (87-102); Mean Platelet Volume 11.2 FL (9.6-12.0); Monocytes % 9.3 % (1.7-12.7); Neutrophils % 74.5 % (38.7-73.9); Platelet Count 238 T/CUMM (130-400); Red Cell Distribution Width 13.3 % (9.3-17.3); White Blood Count 10.8 T/CUMM (4-12)
[2018-11-05] MEDS: ALBUTEROL/IPRATROPIUM 3 ML NEB RESP TX SCH ×5 (05:51→20:39)
[2018-11-05 05:56] LABS: Alanine Aminotransferase 73 U/L (16-61); Albumin 3.3 G/DL (3.4-5.0); Alkaline Phosphatase 88 U/L (45-117); Aspartate Amino Transferase 80 U/L (0-37); Bilirubin,Indirect 0.6 MG/DL (0.0-1.0); Blood Urea Nitrogen 41 MG/DL (7-18); Calcium 9.3 MG/DL (8.5-10.1); Glucose 108 MG/DL (74-106); Osmolality,Calculated 289.4 MOS/KG (273-304); Total Protein 6.5 G/DL (6.4-8.3); Troponin I 0.869 NG/ML (0.00-0.045)
[2018-11-05] MEDS: FERROUS SULFATE 325 MG TABLET PO SCH (09:00)
[2018-11-05] MEDS: PANTOPRAZOLE 40 MG TABLET PO SCH (09:00)
[2018-11-05] MEDS: DOCUSATE SODIUM 100 MG CAPSULE PO SCH (09:00)
[2018-11-05] MEDS: METOPROLOL TARTRATE 25 MG TABLET PO SCH ×2 (09:00→21:10)
[2018-11-05] MEDS: buPROPion 75 MG TABLET PO SCH (09:00)
[2018-11-05] MEDS: ASPIRIN EC 325 MG TABLET PO SCH (09:01)
[2018-11-05] MEDS: CHLORHEXIDINE 0.12% ORAL RINSE 60 ML BOTTLE SWISH/SPIT SCH ×2 (09:01→21:10)
[2018-11-05] MEDS: MAGNESIUM HYDROXIDE SUSP 30 ML UDCUP PO PRN (14:42)
[2018-11-05] MEDS: ROSUVASTATIN 10 MG TABLET PO SCH (21:10)
[2018-11-05] MEDS: LISINOPRIL 20 MG TABLET PO SCH (21:10)
[2018-11-06] MEDS: ALBUTEROL/IPRATROPIUM 3 ML NEB RESP TX SCH ×3 (00:18→10:55)
[2018-11-06] MEDS: oxyCODONE/ACETAMINOPHEN 5-325 MG TABLET PO PRN (04:13)
[2018-11-06 04:51] LABS: Basophils % 0.2 % (0.0-0.8); Eosinophils # 0.3 10*3/uL (0.0-0.87); Hematocrit 32.1 VOL% (42.0-52.0); Hemoglobin 10.5 GM/DL (14.0-18.0); Immature Granulocytes % 1.3 %; Immature Granulocytes Absolute 0.12 #; Lymphocytes # 1.8 10*3/uL (1.4-4.0); Lymphocytes % 20.4 % (21.2-54.2); Mean Corpuscular HGB Conc 32.7 GM/DL (32-36); Mean Platelet Volume 10.6 FL (9.6-12.0); Monocytes % 9.2 % (1.7-12.7); Neutrophils % 65.9 % (38.7-73.9); Platelet Count 264 T/CUMM (130-400); Red Blood Count 3.38 MC/CUMM (3.8-5.5); Red Cell Distribution Width 13.1 % (9.3-17.3)
[2018-11-06 04:52] LABS: Calcium 8.8 MG/DL (8.5-10.1); Osmolality,Calculated 289.3 MOS/KG (273-304)
[2018-11-06 08:30] VITALS: BP 102/63
[2018-11-06] MEDS: FERROUS SULFATE 325 MG TABLET PO SCH (09:21)
[2018-11-06] MEDS: CHLORHEXIDINE 0.12% ORAL RINSE 60 ML BOTTLE SWISH/SPIT SCH (09:21)
[2018-11-06] MEDS: PANTOPRAZOLE 40 MG TABLET PO SCH (09:21)
[2018-11-06] MEDS: buPROPion 75 MG TABLET PO SCH (09:21)
[2018-11-06] MEDS: METOPROLOL TARTRATE 25 MG TABLET PO SCH (09:21)
[2018-11-06] MEDS: DOCUSATE SODIUM 100 MG CAPSULE PO SCH (09:21)
[2018-11-06] MEDS: ASPIRIN EC 325 MG TABLET PO SCH (09:21)
== END 2018-11-06 11:26 | disposition home health service (06) | DRG 234 ==
LOC: N.ED 09:20 → N.EDINP 09:20 → N.TELES 18:35 → N.CVR 11-01 09:52 → N.ICU 11-02 06:43 → N.TELES 11-03 15:51
PROVIDERS: ADMIT Internal Medicine Cardiovascular Disease; ATTEND Internal Medicine Cardiovascular Disease
PROC: CLCCHCL (ICD-10-PCS; 2018-10-29 10:45)